=== PATIENT | male | born 1985 | race Hispanic/Latino ===

== ENCOUNTER 2022-11-01 20:36 | Emergency (ER) | payer SELFPAY ==
[~2022-11-01 20:36] MED LIST: Iopamidol 300 61% 100 ML VIAL FS ONE
[2022-11-01 21:26] LABS: #Basophils 0.1 10x3/uL (0.0-0.2); #Eosinphils 0.2 10x3/uL (0.0-0.5); #Monocytes 0.9 10x3/uL (0.0-1.1); #Neutrophils 6.2 10x3/uL (1.5-8.4); %Basophils 0.6 % (0.0-2.0); %Eosinophils 1.5 % (0.0-6.0); %Lymphocytes 32.2 % (18.0-47.0); %Monocytes 7.8 % (0.0-10.0); %Neutrophils 56.9 % (40.0-75.0); Hematocrit 41.7 % (38.8-50.0); Hemoglobin 14.9 g/dL (13.5-17.5); Mean Corpuscular HGB CONC 35.7 g/dL (32.0-36.0); Mean Corpuscular Hemoglobin 33.4 pg (27.0-33.0); Mean Corpuscular Volume 93.5 fl (81.2-95.1); Mean Platelet Volume 9.8 fl (7.4-10.4); Platelet Count 251 10x3/uL (150-450); RBC Distribution Width 12.3 % (11.5-14.5); Red Blood Cell (RBC) Count 4.46 10x6/uL (4.32-5.72); White Blood Cell (WBC) Count 10.9 10x3/uL (3.5-10.5)
[2022-11-01] MEDS ORDERED: Dibucaine 1% Ointment 28.35 GM TUBE TOP SCH (21:30)
[2022-11-01 21:39] LABS: ALT (SGPT) 25 U/L (8-55); AST (SGOT) 24 U/L (5-34); Albumin 4.3 g/dL (3.5-5.0); Alkaline Phosphatase 89 U/L (40-110); Anion Gap 10 mmol/L (10-20); BUN (Urea Nitrogen) 11 mg/dL (8.9-20.6); Bilirubin, Total 0.3 mg/dL (0.2-1.2); Calc. Creatinine Clearance 0 mL/min (70-130); Calcium 8.7 mg/dL (7.8-10.44); Carbon Dioxide 27 mmol/L (22-29); Chloride 105 mmol/L (98-107); Estimated GFR 104; Globulin 2.3 g/dL (2.4-3.5); Glucose 150 mg/dL (70-105); Potassium 3.7 mmol/L (3.5-5.1); Protein, Total 6.6 g/dL (6.0-8.3); Sodium 138 mmol/L (136-145)
[2022-11-01 21:57] LABS: PTT 30.1 sec (22.0-33.0); Prothrombin Time 10.3 sec (9.5-12.1)
== END 2022-11-01 22:57 | disposition home or self-care (01) ==
LOC: CSHERS 20:36
DX: K62.5 Hemorrhage of anus and rectum (principal)
CPT/HCPCS: 74177; 80053; 85025; 85610; 85730; Q9967

== ENCOUNTER 2023-09-07 14:45 | Emergency (ER) | payer BC, SELFPAY | END 2023-09-07 16:34 | disposition home or self-care (01) | LOC: CSHERS 14:45 | DX: Z00.00 Encounter for general adult medical examination without abnormal findings (principal); R73.03 Prediabetes; Z55.6 Problems related to health literacy | CPT/HCPCS: 71046 ==